=== PATIENT | male | born 1985 | race Asian ===

== ENCOUNTER 2018-05-16 10:08 | Outpatient (REF) | payer MEDICARE, MEDICAID, SELFPAY ==
[2018-05-16 22:16] LABS: Cholesterol 241 mg/dL (50-200); HDL Cholesterol 39 mg/dL (40-60); LDL CHOLESTEROL 106 mg/dL (<100); TSH 0.97 uIU/mL (0.358-3.74); Triglyceride 243 mg/dL (30-150)
== END 2018-05-16 10:28 ==
LOC: NCHCN 10:08
PROVIDERS: PCP Internal Medicine; Visit Provider Registered Nurse
DX: E03.9 Hypothyroidism, unspecified (principal)
CPT/HCPCS: 80061; 83721; 84443

== ENCOUNTER 2019-07-20 08:56 | Outpatient (REF) | payer MEDICARE, MEDICAID, SELFPAY ==
[2019-07-20 22:29] LABS: HCT 45.4 % (40.0-50.0); HGB 15.9 g/dL (13.5-17.5); Mean Corpuscular Hemoglobin 34.1 pg (27.0-33.0); Mean Corpuscular Volume 97.4 fL (80-95); Mean Platelet Volume 9.6 fL (8.0-11.0); Platelet Count 282 x1000/uL (130-400); RBC 4.66 m/cumm (4.50-6.00); RBC Distribution Width 13.3 % (11.8-14.1); White Blood Cell Count 3.97 k/cumm (4.4-10.8)
[2019-07-20 22:45] LABS: ALT 27 U/L (16-63); AST 17 U/L (15-37); Albumin 3.8 g/dL (3.4-5.0); Alkaline Phosphatase 138 U/L (46-116); Anion Gap 9.2 mmol/L (3-11); BUN 14 mg/dL (7-18); Bilirubin, Total 0.7 mg/dL (0.2-1.0); CO2 28.8 mmol/L (21.0-32.0); CREATININE 0.87 mg/dL (0.70-1.30); Calcium 8.9 mg/dL (8.5-10.1); Calculated LDL 174 mg/dL; Chloride 102 mmol/L (98-107); Cholesterol 274 mg/dL (<200); Glucose 94 mg/dL (74-106); HDL Cholesterol 36 mg/dL (40-60); Potassium 3.7 mmol/L (3.5-5.1); Sodium 140 mmol/L (136-145); TSH 1.14 uIU/mL (0.36-3.74); Total Protein 7.4 g/dL (6.4-8.2); Triglyceride 324 mg/dL (<150)
== END 2019-07-20 09:16 ==
LOC: NCHCN 08:56
PROVIDERS: PCP Internal Medicine; Visit Provider Registered Nurse
DX: E03.9 Hypothyroidism, unspecified (principal); Q90.9 Down syndrome, unspecified
CPT/HCPCS: 80053; 80061; 85027; 84443

== ENCOUNTER 2019-09-18 09:35 | Outpatient (REF) | payer MEDICARE, MEDICAID, SELFPAY ==
[2019-09-18 20:36] LABS: Calculated LDL 257 mg/dL (<100); Cholesterol 360 mg/dL (<200); HDL Cholesterol 45 mg/dL (40-60); TSH 2.47 uIU/mL (0.36-3.74); Triglyceride 294 mg/dL (<150)
== END 2019-09-18 09:55 ==
LOC: NCHCN 09:35
PROVIDERS: PCP Internal Medicine; Visit Provider Registered Nurse
DX: E03.9 Hypothyroidism, unspecified (principal); E78.5 Hyperlipidemia, unspecified
CPT/HCPCS: 80061; 84443

== ENCOUNTER 2020-01-01 10:27 | Outpatient (REF) | payer MEDICARE, MEDICAID, SELFPAY ==
[2020-01-01 21:17] LABS: Calculated LDL 31 mg/dL (<100); Cholesterol 93 mg/dL (<200); HDL Cholesterol 43 mg/dL (40-60); Triglyceride 97 mg/dL (<150)
== END 2020-01-01 10:47 ==
LOC: NCHCN 10:27
PROVIDERS: PCP Registered Nurse; Visit Provider Registered Nurse
DX: E78.5 Hyperlipidemia, unspecified (principal)
CPT/HCPCS: 80061

== ENCOUNTER 2021-01-30 08:20 | Outpatient (REF) | payer MEDICARE, MEDICAID, SELFPAY ==
[2021-01-30 14:01] LABS: Calculated LDL 51 mg/dL (<100); Cholesterol 132 mg/dL (<200); HDL Cholesterol 45 mg/dL (40-60); TSH 1.15 uIU/mL (0.36-3.74); Triglyceride 184 mg/dL (<150)
[2021-01-30 14:09] LABS: Hemoglobin A1C 5.3 % (<5.7)
== END 2021-01-30 08:21 | disposition home or self-care (01) ==
LOC: NCHCN 08:20
PROVIDERS: PCP Registered Nurse; Visit Provider Nurse Practitioner Family
DX: Z00.00 Encounter for general adult medical examination without abnormal findings (principal); Z13.1 Encounter for screening for diabetes mellitus; E78.5 Hyperlipidemia, unspecified; E03.9 Hypothyroidism, unspecified
CPT/HCPCS: 80061; 83036; 84443

== ENCOUNTER 2022-07-18 14:07 | Outpatient (REF) | payer MEDICARE, MEDICAID, SELFPAY ==
[2022-07-18 14:45] LABS: ALT 60 U/L (16-63); AST 55 U/L (15-37); Alkaline Phosphatase 152 U/L (46-116); Anion Gap 9.5 mmol/L (3-11); BUN 18 mg/dL (7-18); Bilirubin, Total 0.7 mg/dL (0.2-1.0); CO2 26.5 mmol/L (21.0-32.0); CREATININE 0.8 mg/dL (0.70-1.30); Calcium 8.9 mg/dL (8.5-10.1); Calculated LDL 64 mg/dL (<100); Chloride 105 mmol/L (98-107); Cholesterol 159 mg/dL (<200); Estimated GFR 118.36 (mL/min/1.73m2); Glucose 104 mg/dL (74-106); HDL Cholesterol 51 mg/dL (40-60); Potassium 4.1 mmol/L (3.5-5.1); Sodium 141 mmol/L (136-145); TSH 1.86 uIU/mL (0.36-3.74); Total Protein 7.6 g/dL (6.4-8.2); Triglyceride 222 mg/dL (<150)
== END 2022-07-18 14:08 | disposition home or self-care (01) ==
LOC: NCHCN 14:07
PROVIDERS: PCP Registered Nurse; Visit Provider Registered Nurse
DX: E78.5 Hyperlipidemia, unspecified (principal); E03.9 Hypothyroidism, unspecified
CPT/HCPCS: 80053; 80061; 84443

== ENCOUNTER 2022-09-12 21:23 | Outpatient (REF) | payer MEDICARE, MEDICAID, SELFPAY ==
[2022-09-12 21:45] LABS: HCT 44.7 % (40.0-50.0); HGB 15.4 g/dL (13.5-17.5); MCH 34.6 pg (27.0-33.0); MCHC 34.5 % (32.0-36.0); MCV 100 fL (80-95); MPV 8.9 fL (8.0-11.0); Platelet Count 218 10^3/uL (130-400); RBC 4.45 10^6/uL (4.36-5.78); RDW-SD 48.3 fL; WBC 5.71 10^3/uL (4.4-10.8)
[2022-09-12 22:06] LABS: ALT 197 U/L (16-63); AST 67 U/L (15-37); Albumin 3.8 g/dL (3.4-5.0); Alkaline Phosphatase 219 U/L (46-116); Bilirubin, Direct 0.1 mg/dL (0.0-0.2); Bilirubin, Total 0.5 mg/dL (0.2-1.0); GGT 153 U/L (15-85); Total Protein 7.3 g/dL (6.4-8.2)
[2022-09-12 22:47] LABS: Vitamin D 25 Total 18.5 ng/mL (30-100)
== END 2022-09-12 21:24 | disposition home or self-care (01) ==
LOC: NCHCN 21:23
PROVIDERS: PCP Registered Nurse; Visit Provider Registered Nurse
DX: R53.83 Other fatigue (principal); F32.9 Major depressive disorder, single episode, unspecified; R79.89 Other specified abnormal findings of blood chemistry; E55.9 Vitamin D deficiency, unspecified; E78.5 Hyperlipidemia, unspecified; E03.9 Hypothyroidism, unspecified
CPT/HCPCS: 80076; 82306; 85027; 82977

== ENCOUNTER 2022-12-05 16:19 | Outpatient (REF) | payer MEDICARE, MEDICAID, SELFPAY ==
[2022-12-05 17:59] LABS: ALT 89 U/L (16-63); AST 30 U/L (15-37); Alkaline Phosphatase 167 U/L (46-116); Bilirubin, Direct 0.1 mg/dL (0.0-0.2); Bilirubin, Total 0.5 mg/dL (0.2-1.0); Total Protein 7.5 g/dL (6.4-8.2)
[2022-12-07 09:10] LABS: HBs Antibody, Quant >1000.0 mIU/mL (See Note); Hepatitis B Surface Ab Positive (See Note)
[2022-12-07 09:23] LABS: Hepatitis B Surface Ag Negative (Negative)
[2022-12-07 09:58] LABS: Hep B Core Antibody Negative (Negative)
[2022-12-07 10:13] LABS: Hepatitis C Ab w Rflx HCV PCR Negative (Negative)
== END 2022-12-05 16:20 | disposition home or self-care (01) ==
LOC: NCHCN 16:19
PROVIDERS: PCP Registered Nurse; Visit Provider Registered Nurse
DX: R79.89 Other specified abnormal findings of blood chemistry (principal)
CPT/HCPCS: 80076; 86704; 86706; 86803; 87340

== ENCOUNTER 2022-12-31 10:52 | Outpatient (REF) | payer MEDICARE, MEDICAID, SELFPAY ==
[2022-12-31 16:29] LABS: Ferritin 427 ng/mL (26-388)
[2022-12-31 16:49] LABS: Iron 129 ug/dL (65-175); Total Iron Binding Capacity 294 ug/dL (250-450); Transferrin Sat 44 % (20-55)
== END 2022-12-31 10:53 | disposition home or self-care (01) ==
LOC: NCHCN 10:52
PROVIDERS: PCP Registered Nurse; Visit Provider Nurse Practitioner Family
DX: R71.8 Other abnormality of red blood cells (principal)
CPT/HCPCS: 82728; 83540; 83550

== ENCOUNTER 2023-07-25 11:26 | Outpatient (REF) | payer MEDICARE, MEDICAID, SELFPAY ==
[2023-07-25 14:35] LABS: Iron 90 ug/dL (65-175); Total Iron Binding Capacity 306 ug/dL (250-450); Transferrin Sat 29 % (20-55)
[2023-07-25 14:47] LABS: Ferritin 484 ng/mL (26-388); TSH (W/Ref FT4) 1.82 uIU/mL (0.36-3.74)
[2023-07-25 14:58] LABS: Vitamin D 25 Total 19.7 ng/mL (30-100)
== END 2023-07-25 11:27 | disposition home or self-care (01) ==
LOC: NCHCN 11:26
PROVIDERS: PCP Registered Nurse; Visit Provider Family Medicine
DX: E03.9 Hypothyroidism, unspecified (principal); E55.9 Vitamin D deficiency, unspecified; R79.0 Abnormal level of blood mineral
CPT/HCPCS: 82306; 82728; 83540; 83550; 84443

== ENCOUNTER 2023-08-07 11:36 | Outpatient (REF) | payer MEDICARE, MEDICAID, SELFPAY ==
--- OUTSIDE RECORDS SUMMARY | 2023-08-07 11:40 | XMS_ITS | CCD ---
Author Name Unknown Address [address] [place] [address] [phone] Organization Unknown Address [address] [place] [address] [phone] Care Team Providers Care Help Desk Assistant Name Role Phone MIRLANDE BAE Attending Physician [phone] MIRLANDE BAE Rounding (Secondary) Physician [phone] Vital Signs Unknown or Not Available. Allergies Unknown or Not Available. Procedures Unknown or Not Available. History of Immunizations Unknown or Not Available. Problems Unknown or Not Available. Results Unknown or Not Available. Active Medications Unknown or Not Available. Medications Administered During Visit Unknown or Not Available. Encounters Encounter Diagnosis Diagnosis Code Start Date Snoring [id number] 05/24/2022 Social History Unknown or Not Available. Patient Decision Aids Unknown or Not Available. Discharge Instructions You were admitted to [facility] on 05/24/2022 14:59 with a principal diagnosis of Snoring You were discharged from [facility] on 05/24/2022 14:59 Should you have any questions prior to discharge, please contact a member of your healthcare team. If you have left the hospital and have any questions, please contact your primary care physician. Chief Complaint and Reason For Visit Unknown or Not Available. Function Status Unknown or Not Available. Plan of Care Unknown or Not Available. Referral/Transition of Care Unknown or Not Available.
[2023-08-07 14:53] LABS: Abs Immature Grans 0.01 10^3/uL (0.0-0.06); Absolute Basophil Count 0.07 10^3/uL (0.0-0.2); Absolute Eosinophil Count 0.04 10^3/uL (0.0-0.7); Absolute Lymphocyte Count 1.05 10^3/uL (1.2-3.4); Absolute Monocyte Count 0.26 10^3/uL (0.1-0.8); Absolute Neutrophil Count 2.69 10^3/uL (1.2-6.7); Basophils % 1.7; HCT 47.9 % (40.0-50.0); HGB 16.8 g/dL (13.5-17.5); Immature Grans % 0.2; Lymphocytes % 25.5; MCHC 35.1 % (32.0-36.0); MCV 97 fL (80-95); MPV 9.1 fL (8.0-11.0); Monocytes % 6.3; Neutrophils % 65.3; Platelet Count 302 10^3/uL (130-400); RBC 4.94 10^6/uL (4.36-5.78); RDW 13.6 % (11.8-14.1); RDW-SD 47.1 fL; WBC 4.12 10^3/uL (4.4-10.8)
[2023-08-07 15:38] LABS: ALT 51 U/L (16-63); AST 31 U/L (15-37); Alkaline Phosphatase 135 U/L (46-116); Anion Gap 8.8 mmol/L (3-11); BUN 19 mg/dL (7-18); Bilirubin, Total 0.7 mg/dL (0.2-1.0); CO2 25.2 mmol/L (21.0-32.0); CREATININE 0.9 mg/dL (0.70-1.30); Calcium 8.9 mg/dL (8.5-10.1); Chloride 104 mmol/L (98-107); Estimated GFR 112.81 (mL/min/1.73m2); Folate 12.6 ng/mL (8.6-20.0); Glucose 123 mg/dL (74-106); Sodium 138 mmol/L (136-145); Total Protein 7.8 g/dL (6.4-8.2); Vitamin B12 298 pg/mL (193-986)
== END 2023-08-07 11:37 | disposition home or self-care (01) ==
LOC: NCHCN 11:36
PROVIDERS: PCP Registered Nurse; Visit Provider Family Medicine
DX: D75.89 Other specified diseases of blood and blood-forming organs (principal)
CPT/HCPCS: 80053; 82607; 82746; 85025

== ENCOUNTER 2023-08-22 14:16 | Outpatient (REF) | payer MEDICARE, MEDICAID, SELFPAY ==
--- OUTSIDE RECORDS SUMMARY | 2023-08-22 14:22 | XMS_ITS | CCD ---
Author Name Unknown Address [address] [place] [address] [phone] Organization Unknown Address [address] [place] [address] [phone] Care Team Providers Care [address] Light Name Role Phone HORTENSIA WAN Attending Physician [phone] Vital Signs Unknown or Not Available. Allergies Unknown or Not Available. Procedures Unknown or Not Available. History of Immunizations Unknown or Not Available. Problems Unknown or Not Available. Results Unknown or Not Available. Active Medications Unknown or Not Available. Medications Administered During Visit Unknown or Not Available. Encounters Encounter Diagnosis Diagnosis Code Start Date Refusal of treatment by patient [id number] 02/02/2023 Social History Unknown or Not Available. Patient Decision Aids Unknown or Not Available. Discharge Instructions You were admitted to [facility] on 02/02/2023 20:44 with a principal diagnosis of Procedure and treatment not carried out because of patient's decision for other reasons You were discharged from [facility] on 02/02/2023 23:00 Should you have any questions prior to [...]
--- OUTSIDE RECORDS SUMMARY | 2023-08-22 14:23 | XMS_ITS | CCD ---
Author Name Unknown Address [address] [place] [address] [phone] Organization Unknown Address [address] [place] [address] [id number] Care Team Providers Care Senior Cytogenetic Technologist Name Role Phone ARTUR CHARLES Attending Physician [phone] Vital Signs Unknown or Not Available. Allergies Unknown or Not Available. Procedures Unknown or Not Available. History of Immunizations Unknown or Not Available. Problems Unknown or Not Available. Results Unknown or Not Available. Active Medications Unknown or Not Available. Medications Administered During Visit Unknown or Not Available. Encounters Encounter Diagnosis Diagnosis Code Start Date Other specified abnormal findings of blood chemi stry [id number] 11/21/2022 Social History Unknown or Not Available. Patient Decision Aids Unknown or Not Available. Discharge Instructions You were admitted to [facility] on 11/21/2022 10:03 with a principal diagnosis of Other specified abnormal findings of blood chemistry You were discharged from [facility] on 11/21/2022 10:03 Should you have any questions prior to discharge, please contact a member of your healthcare team. If you have left the hospital and have any questions, please contact your primary care physician. Chief Complaint and Reason For Visit Chief Complaint Date of Onset ELEVATED LFT Function Status Unknown or Not Available. Plan of Care Unknown or Not Available. Referral/Transition of Care Unknown or Not Available.
--- OUTSIDE RECORDS SUMMARY | 2023-08-22 14:23 | XMS_ITS | CCD ---
Author Name Unknown Address [address] [place] [address] [phone] Organization Unknown Address [address] [place] [address] [phone] Care Team Providers Care Casing Tier Name Role Phone MIRLANDE BAE Attending Physician [phone] MIRLANDE BAE Rounding (Secondary) Physician [phone] Vital Signs Unknown or Not Available. Allergies Unknown or Not Available. Procedures Unknown or Not Available. History of Immunizations Unknown or Not Available. Problems Unknown or Not Available. Results Unknown or Not Available. Active Medications Unknown or Not Available. Medications Administered During Visit Unknown or Not Available. Encounters Encounter Diagnosis Diagnosis Code Start Date Snoring [id number] 05/24/2022 Social History Unknown or Not Available. Patient Decision Aids Unknown or Not Available. Discharge Instructions You were admitted to [facility] on 05/24/2022 14:59 with a principal diagnosis of Snoring You were discharged from [facility] on 05/24/2022 14:59 Should you have [...]
[2023-08-22 17:29] LABS: Hemoglobin A1C 5.2 % (<5.7)
== END 2023-08-22 14:17 | disposition home or self-care (01) ==
LOC: NCHCN 14:16
PROVIDERS: PCP Registered Nurse; Referring Provider Family Medicine; Visit Provider Family Medicine
DX: Z83.3 Family history of diabetes mellitus (principal); Z01.89 Encounter for other specified special examinations
CPT/HCPCS: 83036

== ENCOUNTER 2024-02-20 12:21 | Outpatient (REF) | payer MEDICARE, MEDICAID, SELFPAY ==
[2024-02-21 08:25] LABS: IgG 1074 mg/dL (610-1616)
[2024-02-21 12:28] LABS: ANA Interpretation Negative (Negative)
[2024-02-22 14:02] LABS: Smooth Muscle Ab Screen Negative (Negative)
[2024-02-23 12:05] LABS: Ceruloplasmin 22.8 mg/dL
[2024-02-24 12:09] LABS: Result Summary NEGATIVE; Specimen WB Whole Blood
== END 2024-02-20 12:22 | disposition home or self-care (01) ==
LOC: LBO 12:21
PROVIDERS: PCP Family Medicine; Visit Provider Student in an Organized Health Care Education/Training Program
DX: E83.19 Other disorders of iron metabolism (principal); R74.8 Abnormal levels of other serum enzymes
CPT/HCPCS: 81256; 82390; 82784; 86038; 86255

== ENCOUNTER 2024-06-19 12:14 | Outpatient (REF) | payer MEDICARE, MEDICAID, SELFPAY ==
[2024-06-19 14:38] LABS: Abs Immature Grans 0.01 10^3/uL (0.0-0.06); Absolute Basophil Count 0.07 10^3/uL (0.0-0.2); Absolute Eosinophil Count 0.04 10^3/uL (0.0-0.7); Absolute Lymphocyte Count 1.03 10^3/uL (1.2-3.4); Absolute Monocyte Count 0.34 10^3/uL (0.1-0.8); Absolute Neutrophil Count 2.16 10^3/uL (1.2-6.7); Basophils % 1.9 %; Eosinophils % 1.1 %; HCT 45.6 % (40.0-50.0); HGB 16.4 g/dL (13.5-17.5); Immature Grans % 0.3 %; Lymphocytes % 28.2 %; MCH 34.5 pg (27.0-33.0); MCV 96 fL (80-95); Monocytes % 9.3 %; Neutrophils % 59.2 %; Platelet Count 289 10^3/uL (130-400); RBC 4.76 10^6/uL (4.36-5.78); RDW 13.3 % (11.8-14.1); RDW-SD 44.5 fL; WBC 3.65 10^3/uL (4.4-10.8)
[2024-06-19 15:19] LABS: ALT 43 U/L (16-63); AST 28 U/L (15-37); Albumin 3.9 g/dL (3.4-5.0); Alkaline Phosphatase 171 U/L (46-116); Anion Gap 8.4 mmol/L (3-11); BUN 13 mg/dL (7-18); Bilirubin, Total 0.92 mg/dL (0.2-1.0); CO2 28.6 mmol/L (21.0-32.0); Calcium 8.9 mg/dL (8.5-10.1); Chloride 104 mmol/L (98-107); Estimated GFR 99.41 (mL/min/1.73m2); Glucose 117 mg/dL (74-106); Potassium 4.1 mmol/L (3.5-5.1); Sodium 141 mmol/L (136-145); Total Protein 7.5 g/dL (6.4-8.2); Vitamin D 25 Total 24.3 ng/mL (30-100)
== END 2024-06-19 12:15 | disposition home or self-care (01) ==
LOC: NCHCN 12:14
PROVIDERS: PCP Family Medicine; Visit Provider Family Medicine
DX: Z83.49 Family history of other endocrine, nutritional and metabolic diseases (principal); Z00.00 Encounter for general adult medical examination without abnormal findings
CPT/HCPCS: 80053; 81256; 82306; 84443; 85025

== ENCOUNTER 2024-12-28 18:21 | Outpatient (REF) | payer MEDICARE, MEDICAID, SELFPAY ==
[2024-12-28 15:23] LABS: HCT 44.8 % (40.0-50.0); MCH 35.2 pg (27.0-33.0); MCHC 35.7 % (32.0-36.0); MCV 99 fL (80-95); MPV 9.4 fL (8.0-11.0); Platelet Count 336 10^3/uL (130-400); RBC 4.55 10^6/uL (4.36-5.78); RDW-SD 46.9 fL; WBC 4.86 10^3/uL (4.4-10.8)
[2024-12-28 16:27] LABS: ALT 108 U/L (16-63); AST 37 U/L (15-37); Albumin 3.9 g/dL (3.4-5.0); Alkaline Phosphatase 180 U/L (46-116); Anion Gap 9.7 mmol/L (3-11); BUN 11 mg/dL (7-18); Bilirubin, Total 0.4 mg/dL (0.2-1.0); CO2 25.3 mmol/L (21.0-32.0); CREATININE 0.8 mg/dL (0.70-1.30); Calcium 8.4 mg/dL (8.5-10.1); Chloride 102 mmol/L (98-107); Cholesterol 229 mg/dL (<200); Estimated GFR 116.17 (mL/min/1.73m2); Glucose 121 mg/dL (74-106); HDL Cholesterol 36 mg/dL (>or=40); Sodium 137 mmol/L (136-145); TSH (W/Ref FT4) 1.11 uIU/mL (0.36-3.74); Total Protein 7.2 g/dL (6.4-8.2); Triglyceride 918 mg/dL (<150); Vitamin D 25 Total 21 ng/mL (30-100)
[2024-12-28 17:17] LABS: LDL CHOLESTEROL 68 mg/dL (<100)
== END 2024-12-28 18:22 | disposition home or self-care (01) ==
LOC: NCHCN 18:21
PROVIDERS: PCP Family Medicine; Visit Provider Family Medicine
DX: E03.9 Hypothyroidism, unspecified (principal); E55.9 Vitamin D deficiency, unspecified; D75.89 Other specified diseases of blood and blood-forming organs; K76.0 Fatty (change of) liver, not elsewhere classified
CPT/HCPCS: 80053; 80061; 82306; 83721; 85027; 84443

== ENCOUNTER 2025-04-01 17:29 | Outpatient (REF) | payer MEDICARE, MEDICAID, SELFPAY ==
[2025-04-01 15:32] LABS: Hemoglobin A1C 5.2 % (<5.7)
[2025-04-01 15:39] LABS: ALT 99 U/L (16-63); AST 43 U/L (15-37); Albumin 3.6 g/dL (3.4-5.0); Alkaline Phosphatase 114 U/L (46-116); Anion Gap 7.9 mmol/L (3-11); BUN 11 mg/dL (7-18); Bilirubin, Total 0.9 mg/dL (0.2-1.0); CO2 27.1 mmol/L (21.0-32.0); Calcium 8.7 mg/dL (8.5-10.1); Calculated LDL 50 mg/dL (<100); Chloride 104 mmol/L (98-107); Cholesterol 146 mg/dL (<200); Estimated GFR 112.11 (mL/min/1.73m2); Glucose 104 mg/dL (74-106); HDL Cholesterol 44 mg/dL (>or=40); Potassium 3.7 mmol/L (3.5-5.1); Sodium 139 mmol/L (136-145); Total Protein 7.0 g/dL (6.4-8.2); Triglyceride 261 mg/dL (<150); Vitamin D 25 Total 26 ng/mL (30-100)
== END 2025-04-01 17:30 | disposition home or self-care (01) ==
LOC: NCHCN 17:29
PROVIDERS: PCP Family Medicine; Visit Provider Family Medicine
DX: E78.1 Pure hyperglyceridemia (principal); R73.01 Impaired fasting glucose; E55.9 Vitamin D deficiency, unspecified
CPT/HCPCS: 80053; 80061; 82306; 83036